=== PATIENT | female | born 1965 | race Caucasian/White ===

== ENCOUNTER 2020-04-08 16:20 | Outpatient (CLI) | payer OTHER, SELFPAY ==
--- NOTE | ~2020-04-08 | MM_ITS ---
EXAMINATION: MM screening garrison BI [facility] [place] HISTORY: Screening mammogram TECHNIQUE: Craniocaudal and mediolateral oblique 3-D tomosynthesis images were obtained and synthetic 2-D images were generated. CAD analysis was submitted and interpreted. COMPARISON: 08/15/2017, 05/01/2015, 04/21/2014 bilateral digital screening mammogram examinations BREAST PARENCHYMAL COMPOSITION: The breasts are heterogeneously dense, which may obscure small masses . FINDINGS: There is a biopsy marker on the right. History of 2 prior benign right breast biopsies. Occ asional bilateral benign microcalcifications. There is no evidence of suspicious mass, calcification, or architectural distortion to suggest malignancy in either breast. There has been no suspicious int erval change. IMPRESSION: 1. No mammographic evidence of malignancy. 2. Recommend routine screening mammography in one year. BI-RADS Category 2: Benign finding(s). Reviewed, dictated and finalized at location A. 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
== END 2020-04-08 16:21 | disposition home or self-care (01) ==
PROVIDERS: PCP Family Medicine; Visit Provider Student in an Organized Health Care Education/Training Program
DX: Z12.31 Encounter for screening mammogram for malignant neoplasm of breast (principal)
CPT/HCPCS: 77063; 77067

== ENCOUNTER 2021-07-17 09:25 | Outpatient (CLI) | payer OTHER, SELFPAY ==
--- NOTE | ~2021-07-17 | MM_ITS ---
EXAMINATION: MM screening garrison BI [facility] [place] HISTORY: Screening mammogram TECHNIQUE: Craniocaudal and mediolateral oblique 3-D tomosynthesis images were obtained and synthetic 2-D images were generated. CAD analysis was submitted and interpreted. COMPARISON: 04/08/2020, 08/15/2017, 05/01/2015 bilateral screening mammogram examinations BREAST PARENCHYMAL COMPOSITION: The breasts are heterogeneously dense, which may obscure small masses . FINDINGS: There is chronic asymmetry/architectural distortion in the posterior upper outer right [address], stable since 08/15/2017, likely due to prior reportedly benign breast biopsy. There is a biopsy marker more anteriorly in the outer mid right breast. There is no evidence of suspicious mass, calcification, or new architectural distortion to suggest ma lignancy in either breast. There has been no suspicious interval change. IMPRESSION: 1. No mammographic evidence of malignancy. 2. Recommend routine screening mammography in one year. BI-RADS Category 2: Benign finding(s). Reviewed, dictated and finalized at location A.
== END 2021-07-17 09:26 | disposition home or self-care (01) ==
LOC: ANHIMG 09:26
PROVIDERS: PCP Family Medicine; Visit Provider Student in an Organized Health Care Education/Training Program
DX: Z12.31 Encounter for screening mammogram for malignant neoplasm of breast (principal)
CPT/HCPCS: 77063; 77067

== ENCOUNTER 2022-08-25 15:51 | Outpatient (CLI) | payer OTHER, SELFPAY ==
--- NOTE | ~2022-08-25 | MM_ITS ---
EXAMINATION: MM screening garrison BI [facility] [place] HISTORY: Screening mammogram TECHNIQUE: Craniocaudal and mediolateral oblique 3-D tomosynthesis images were obtained and synthetic 2-D images were generated. CAD analysis was submitted and interpreted. COMPARISON: 07/17/2021, 04/08/2020, 08/15/2017 BREAST PARENCHYMAL COMPOSITION:The breasts are heterogeneously dense, which may obscure small masses. FINDINGS: There is a 4 mm asymmetry in the inner right breast, seen only on CC view. No suspicious ma ss or architectural distortion are identified in either the left breast. No suspicious macrocalcifica tions in either breast. IMPRESSION: 4 mm asymmetry at the inner right breast. Spot compression and rolled views, and possibly ultrasound , are recommended for further evaluation. BI-RADS Category 0: Incomplete: Needs additional imaging evaluation. Reviewed, dictated and finalized at [facility]. IMPRESSION: 4 mm asymmetry at the inner right breast. Spot compression and rolled views, a nd possibly ultrasound, are recommended for further evaluation. BI-RADS Category 0: Incomplete: Needs additional imaging evaluation.
== END 2022-08-25 15:52 | disposition home or self-care (01) ==
PROVIDERS: PCP Family Medicine; Visit Provider Student in an Organized Health Care Education/Training Program
DX: Z12.31 Encounter for screening mammogram for malignant neoplasm of breast (principal); N64.89 Other specified disorders of breast
CPT/HCPCS: 77063; 77067

== ENCOUNTER 2022-09-28 11:43 | Outpatient (CLI) | payer OTHER, SELFPAY ==
--- NOTE | ~2022-09-28 | MMUS_ITS ---
EXAMINATION: MM diagnostic garrison RT w [place], US breast RT complete HISTORY: 4 mm asymmetry of inner right breast on screening craniocaudal view of 08/25/2022 TECHNIQUE: Additional 3-D tomosynthesis images of the right breast were performed and synthetic 2-D i mages were generated. CAD analysis was submitted and interpreted. High resolution complete right ruthy st ultrasound examination including all 4 quadrants and subareolar area was performed. COMPARISON: 08/25/2022 bilateral screening mammogram FINDINGS: MAMMOGRAPHIC FINDINGS: A 4 mm density suggested in the inner right breast on 08/25/2022 screening mammogram is not confirmed o n these supplemental views. There is mildly nodular fibroglandular stroma which may obscure small masses. Complete right breast u ltrasound examination was performed. ULTRASOUND: Right breast: 12:00 1 cm from nipple: Parallel circumscribed sonolucency measuring 4.6 x 2.3 mm, consistent with si mple cyst 1:00 2 cm from nipple: 2.5 x 3.6 x 3.8 mm cyst No suspicious mass or shadowing of the right breast is detected. IMPRESSION: 1. Benign findings 2. Routine annual mammographic screening is recommended BI-RADS Category 2: Benign finding(s). Reviewed, dictated and finalized at location A. IMPRESSION: 1. Benign findings 2. Routine annual mammographic screening is recommended BI-RADS Category 2: Benign finding(s).
== END 2022-09-28 11:44 | disposition home or self-care (01) ==
LOC: ANHIMG 11:45
PROVIDERS: PCP Family Medicine; Visit Provider Obstetrics & Gynecology
DX: R92.8 Other abnormal and inconclusive findings on diagnostic imaging of breast (principal)
CPT/HCPCS: 76641; 77061; 77065; G0279

== ENCOUNTER → 2023-04-19 10:52 | Outpatient (CLI) | payer OTHER, SELFPAY ==
--- NOTE | ~2023-04-19 | XR_ITS ---
Supine and upright views of the abdomen Clinical history: Abdominal pain Findings: Bowel gas pattern is nonspecific. No evidence for obstruction or free air. No abnormal mass lesion or calcification is seen, aside from probable calcified phleboliths in the pelvis. Osseous st ructures are intact. Impression: No significant abnormality is seen. Reviewed, dictated and finalized at [facility]. 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
== END ==
PROVIDERS: PCP Physician Assistant; Visit Provider Physician Assistant
DX: R10.9 Unspecified abdominal pain (principal)
CPT/HCPCS: 74018

== ENCOUNTER 2023-04-27 18:58 | Emergency (ER) | payer OTHER, SELFPAY ==
--- NOTE | ~2023-04-27 | CT_ITS ---
EXAMINATION: CT abdomen pelvis wo con DATE: 04/27/2023 22:44 INDICATION: Left flank pain. Urinary tract infection. TECHNIQUE: Computed tomography (CT) of the abdomen and pelvis was performed without intravenous contr ast. Automated exposure control and iterative reconstruction technique were employed. The dose-length product was 232.18 mGy-cm. COMPARISON: None. FINDINGS: The visualized portions of the lung bases demonstrate mild atelectasis. No pleural effusion . The heart size is normal. No pericardial effusion. The liver, gallbladder, pancreas, and adrenal gl ands are normal. Calcifications in the spleen are consistent with old granulomatous disease. The kidn eys are normal. There is no urolithiasis. There are no dilated loops of bowel. The appendix is normal . There are no pathologically enlarged lymph nodes. There is no free intraperitoneal fluid. There is mild lumbar spondylosis. IMPRESSION: 1. No urolithiasis. Reviewed, dictated and finalized at location E. 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 No urolithiasis.
[2023-04-27 19:42] VITALS: BP 136/103; PULSE 71; RESP 16; TEMP 36.4; O2SAT 100
[2023-04-27 20:26] LABS: Appearance Urine Clear (Clear); Bacteria Urine None Seen /hpf; Bilirubin Urine Negative (Negative); Blood Urine Trace (Negative); Color Urine Yellow (Yellow); Glucose Urine UA Negative (Negative); Ketones Urine Negative (Negative); Leukocyte Esterase Ur 2+ LEU/UL (Negative); Nitrate Urine Negative (Negative); Non Pathogenic Casts 0-2; Protein Urine Negative (Negative); RBC Urine 0-2 /hpf (0-2); Specific Grav Ur 1.008 (1.001-1.035); Squamous Epithelial Cell Urine Occasional /hpf (Few); Urobilinogen Urine 0.2 mg/dL (<2.0); WBC Urine 21-50 /hpf; pH Urine 6.5 (5.0-9.0)
[2023-04-27 20:28] LABS: Add Urine Microscopic? YES
[2023-04-27 21:45] LABS: Basophils Percent Auto 0.6 % (0.2-1.2); Eosinophils Absolute Auto 0.1 K/mm3 (0-0.3); Hematocrit 37.5 % (37.0-47.0); Hemoglobin 12.5 g/dL (12.0-15.0); Immature Granulocyte Absolute 0.01 K/mm3 (0.00-0.031); Immature Granulocyte Percent A 0.2 % (0-0.5); Lymphocytes Absolute Auto 1.83 K/mm3 (0.9-3.2); Lymphocytes Percent Auto 28.2 % (18.3-44.2); Mean Corpuscular HGB Conc 33.3 g/dl (32-36); Mean Corpuscular Hemoglobin 31.8 pg (26-34); Mean Corpuscular Volume 95.4 fl (80-100); Mean Platelet Volume 9.6 fl (7.4-10.4); Monocytes Absolute Auto 0.9 K/mm3 (0.1-0.6); Monocytes Percent Auto 13.3 % (2.6-8.5); Neutrophils Absolute Auto 3.6 K/mm3 (1.3-6.7); Neutrophils Percent Auto 55.7 % (45.5-73.1); Platelet Count Result 174 k/mm3 (150-375); Red Blood Count 3.93 M/mm3 (4.2-5.4); Red Cell Distribution Width 12.4 % (11.5-14.5); White Blood Count 6.5 K/mm3 (4.5-10.0)
[2023-04-27 21:56] LABS: Alanine Aminotransferase 18 U/L (6-35); Albumin Level 4.3 g/dL (3.5-5.1); Alkaline Phosphatase 74 U/L (38-126); Anion Gap 6 mmol/L (8-16); Aspartate Amino Transferase 26 U/L (14-36); Bilirubin,Total 0.5 mg/dL (0.2-1.3); Blood Urea Nitrogen 15 mg/dL (7-17); Calcium 8.9 mg/dL (8.4-10.2); Carbon Dioxide 27 mmol/L (22-30); Chloride 103 mmol/L (98-107); Estimated CRCL calculation 61 ml/min; Estimated Glomerular Filt Rate > 60; Glucose 95 mg/dL (65-110); Potassium 3.9 mmol/L (3.4-5.0); Sodium 136 mmol/L (137-145)
[2023-04-27] MEDS: SODIUM CHLORIDE 0.9% IV 1,000 ML 999 ML IV CONT (22:57)
--- NOTE | 2023-04-27 23:08 | ED.FEMALEGU ---
HPI - Female Genitourinary General Chief complaint: Urogenital-Female Stated complaint: left flank pain Time Seen by Provider: 04/27/23 22:05 Source: patient and old records reviewed Mode of arrival: ambulatory Limitations: no limitations History of Present Illness HPI Narrative: Patient is a 58-year-old female who presents to ED with report of left flank pain and UTI. Patient reports she has had ongoing left flank pain for the last 3 weeks. She saw her primary care doctor last Monday and was diagnosed with a UTI. Sent for outpatient KUB x-ray which was unremarkable. Patient does not have any history of kidney stones. Denies pain radiating significantly around to abdomen. she is a not had any notable urinary symptoms, denies significant dysuria, frequency, urgency, hematuria. Patient has been on ciprofloxacin for the last 10 days but denies improvement of Flank pain. Has been trying Aleve at home without improvement. Wanting re-evaluation. Denies nausea, vomiting, fevers, diarrhea, constipation. Related Data Home Medications Medication Instructions Recorded Confirmed levothyroxine 50 mcg capsule 50 mcg PO DAILY 09/19/19 09/22/20 tpdlkgssodrr-wludkhvj-eaohuwj-folic 1 tablet PO DAILY 09/19/19 09/22/20 acid 400 mcg-vit K1 20 mcg tablet (One-A-Day Women's 50 Plus) krill oil 500 mg capsule mg PO 04/26/22 Allergies Allergy/AdvReac Type Severity Reaction Status Date / Time Sulfa (Sulfonamide Allergy Unknown unknown Verified 04/27/23 22:19 Antibiotics) Review of Systems Review of Systems: CONSTITUTIONAL: Denies fever, chills, or sweats. CARDIOVASCULAR: Denies chest pain. RESPIRATORY: Denies dyspnea. GASTROINTESTINAL: See HPI. GENITOURINARY: Denies dysuria or hematuria. MUSCULOSKELETAL: See HPI. All systems reviewed & are unremarkable except as noted in HPI and below PMFSH Past Medical History Medical History Adhesive capsulitis Degenerative disc disease, cervical Displaced fracture of shaft of left clavicle Hyperlipidemia Hypertension Hypothyroidism Scleritis Surgical History Surgical History History of bunionectomy right foot 2011 History of endometrial ablation 2008 History of right breast biopsy History of shoulder surgery ORIF left distal clavicle 10/2018 [place] teeth removed Family History Family History Father Diabetes mellitus Family history of hypercholesterolemia Alzheimer disease Sibling Family history of hypercholesterolemia COPD (chronic obstructive pulmonary disease) Mother Family history of colonic diverticulitis Social History Social History Smoking status: Never smoker Second hand tobacco smoke exposure: No Alcohol intake: current Substance use: never Substance use type: does not use Lack of Transportation: No Lack of Food: Never True Current Housing: I Have Housing Concerned About Future Housing: No Difficulty Paying Gas/Electric Bills: No Difficulty Paying for Meds: No Currently Unemployed: No Education: Master's Degree or Higher Difficulty w/ Childcare or Family Care: No Living arrangements: with family Occupation/Education: occupation 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 HEAD: Normocephalic, atraumatic. RESPIRATORY: Airway patent, respirations nonlabored. Clear to auscultation bilaterally, no rales, rhonchi, wheezing. CARDIOVASCULAR: Regular rate and rhythm without murmurs, rubs, or gallop
[2023-04-27] MEDS: KETOROLAC 30 MG/ML VIAL (*BKC) IV PUSH (23:17)
== END 2023-04-28 00:03 | disposition home or self-care (01) ==
PROVIDERS: Emergency Medicine; Emergency Provider Physician Assistant; PCP Physician Assistant
DX: N30.00 Acute cystitis without hematuria (principal); R10.9 Unspecified abdominal pain; I10 Essential (primary) hypertension; E78.5 Hyperlipidemia, unspecified; E03.9 Hypothyroidism, unspecified; M50.30 Other cervical disc degeneration, unspecified cervical region
CPT/HCPCS: 36415; 74176; 80053; 81001; 85025; 87086; 96365; 96375; 99284; J0696; J1885; J7030

== ENCOUNTER 2023-10-02 15:11 | Outpatient (CLI) | payer OTHER, SELFPAY ==
--- NOTE | ~2023-10-02 | MM_ITS ---
EXAMINATION: MM screening garrison BI [facility] [place] HISTORY: Screening TECHNIQUE: Craniocaudal and mediolateral oblique 3-D tomosynthesis images were obtained and synthetic 2-D images were generated. CAD analysis was submitted and interpreted. COMPARISON: Comparison to multiple prior studies sequentially, with oldest reviewed study dated 05/01. BREAST PARENCHYMAL COMPOSITION: Not dense: There are scattered areas of fibroglandular density. FINDINGS: There is no evidence of suspicious mass, calcification, or architectural distortion to sugg est malignancy in either breast. There has been no suspicious interval change. IMPRESSION: 1. No mammographic evidence of malignancy. 2. Recommend routine screening mammography in one year. BI-RADS Category 1: Negative Reviewed, dictated and finalized at location B.
== END 2023-10-02 15:12 | disposition home or self-care (01) ==
LOC: ANHIMG 15:13
PROVIDERS: PCP Family Medicine; Visit Provider Registered Nurse
DX: Z12.31 Encounter for screening mammogram for malignant neoplasm of breast (principal)
CPT/HCPCS: 77063; 77067

== ENCOUNTER 2023-11-16 01:45 | Day surgery (SDC) | payer OTHER, SELFPAY ==
[2023-10-31 14:14] VITALS: BMI 20.4
[2023-11-16 07:42] VITALS: BP 95/79; PULSE 65; RESP 16; TEMP 36.6; O2SAT 98
[2023-11-16] MEDS: LACTATED RINGERS 1,000 ML 150 ML IV CONT (08:04)
--- NOTE | 2023-11-16 08:33 | WPDANESEPPF ---
Anes - Initial Pre Proc Eval Procedure: Operation Date: 11/16/23 09:00 Proposed Procedures p Screening Colonoscopy - Ravindra Castellon DO Date/Time: 11/16/23 08:33 Surgeon: Ravindra Castellon DO Pre Op Diagnosis: neoplasm screening Patient Data Age: 58 Gender: F Height: 1.63 m Weight: 52.8 kg Last Vital Signs Temp 98 F 11/16/23 07:42 Pulse 65 11/16/23 07:42 Resp 16 11/16/23 07:42 BP 95/79 L 11/16/23 07:42 Pulse Ox 98 11/16/23 07:42 O2 Del Method Room Air 11/16/23 07:42 Allergies Allergy/AdvReac Type Severity Reaction Status Date / Time Sulfa (Sulfonamide Allergy Unknown unknown Verified 11/16/23 07:41 Antibiotics) Home Medications Medication Instructions Recorded Confirmed Type wydqidpovvou-vhvqarhx-vpmshnd-folic 1 tablet PO DAILY 09/19/19 11/16/23 History acid 400 mcg-vit K1 20 mcg tablet (One-A-Day Women's 50 Plus) krill oil 500 mg capsule 500 mg PO DAILY 04/26/22 11/16/23 History estradiol 0.05 mg-norethindrone See Rx Instructions .Route 12/21/22 11/16/23 Rx 0.14 mg/24 hr semiwkly transderm .COMPLEX #24 patches patch (CombiPatch) levothyroxine 75 mcg tablet See Rx Instructions .Route 09/13/23 11/16/23 Rx .COMPLEX #90 tabs losartan 50 mg tablet See Rx Instructions .Route 10/25/23 11/16/23 Rx .COMPLEX #90 tabs Patient hx anesthesia problems: none Family hx anesthesia problems: none Results Review: All pre-operative results and documents have been reviewed as part of the pre-operative evaluation. [facility] Past Medical History Medical History Adhesive capsulitis Degenerative disc disease, cervical Displaced fracture of shaft of left clavicle Hyperlipidemia Hypertension Hypothyroidism Scleritis Surgical History Surgical History History of bunionectomy right foot 2011 History of endometrial ablation 2008 History of right breast biopsy History of shoulder surgery ORIF left distal clavicle 10/2018 [place] teeth removed Family History Family History Father Diabetes mellitus Family history of hypercholesterolemia Alzheimer disease Sibling Family history of hypercholesterolemia COPD (chronic obstructive pulmonary disease) Mother Family history of colonic diverticulitis Social History Social History Smoking status: Never smoker Second hand tobacco smoke exposure: No Alcohol intake: current Drinks per week: 2 Substance use: never Substance use type: does not use Lack of Transportation: No Lack of Food: Never True Current Housing: I Have Housing Concerned About Future Housing: No Difficulty Paying Gas/Electric Bills: No Difficulty Paying for Meds: No Currently Unemployed: No Education: Master's Degree or Higher Difficulty w/ Childcare or Family Care: No Living arrangements: with family Occupation/Education: occupation 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 Gender identity (if verbalized by the patient): Female Sexual Orientation (if Verbalized by the Patient): Straight or Heterosexual Spiritual care concerns: No Anes - Eval Final PreProcedure Day of Procedure 11/16/23 08:33 Patient weight: normal Heart: regular rate and rhythm Lungs: clear to auscultation Airway: Mallampati scale class II Neurological: alert and oriented Last oral intake: >/= 8 hours ASA classification: III Emergent: no Anesthetic plan: proceed Anesthesia type and monitoring: general GIVS and standard monitoring Results Review: All pre-operative results and documents have been reviewed as part of the pre-operative evaluation. Informed Consent: The patient's anesthetic plan and its attendant risks and benefits were discussed with the patient/family/POA. Questions were janet
--- NOTE | 2023-11-16 08:40 | PM.IMHP ---
H&P: HPI History of Present Illness Date/Time: 11/16/23 08:40 Chief Complaint: screening for colorectal cancer Narrative: this is a 58-year-old woman who presents for colonoscopy. Last colonoscopy was 10 years ago and was normal. She denies any hematochezia or melena. She denies family history of colon cancer. Review of Systems Review of Systems: All systems reviewed & are unremarkable except as noted in HPI and below Constitutional: Constitutional: Denies chills, Denies fever(s), Denies headache(s) and Denies weight loss Eyes: Eyes: Denies change in vision ENT: Denies dizziness, Denies headache(s), Denies neck mass and Denies throat swelling Cardiovascular: Cardiovascular: Denies chest pain, Denies lightheadedness and Denies dyspnea Respiratory: Respiratory: Denies cough, Denies dyspnea and Denies wheezing Gastrointestinal: Gastrointestinal: Denies abdominal pain, Denies change in bowel habits, Denies nausea and Denies vomiting Genitourinary: Genitourinary: Denies hematuria and Denies dysuria Musculoskeletal: Musculoskeletal: Reports as per HPI Integumentary/Breasts: Skin/Breast: Reports as per HPI Neurologic: Denies dizziness and Denies headache(s) Allergic/Immunologic: Allergic/Immunologic: Denies throat swelling and Denies wheezing PMFSH Past Medical History Medical History Adhesive capsulitis Degenerative disc disease, cervical Displaced fracture of shaft of left clavicle Hyperlipidemia Hypertension Hypothyroidism Scleritis Surgical History Surgical History History of bunionectomy right foot 2011 History of endometrial ablation 2008 History of right breast biopsy History of shoulder surgery ORIF left distal clavicle 10/2018 [place] teeth removed Family History Family History Father Diabetes mellitus Family history of hypercholesterolemia Alzheimer disease Sibling Family history of hypercholesterolemia COPD (chronic obstructive pulmonary disease) Mother Family history of colonic diverticulitis Social History Social History Smoking status: Never smoker Second hand tobacco smoke exposure: No Alcohol intake: current Drinks per week: 2 Substance use: never Substance use type: does not use Lack of Transportation: No Lack of Food: Never True Current Housing: I Have Housing Concerned About Future Housing: No Difficulty Paying Gas/Electric Bills: No Difficulty Paying for Meds: No Currently Unemployed: No Education: Master's Degree or Higher Difficulty w/ Childcare or Family Care: No Living arrangements: with family Occupation/Education: occupation 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[employer] Gender identity (if verbalized by the patient): Female Sexual Orientation (if Verbalized by the Patient): Straight or Heterosexual Spiritual care concerns: No Meds Home Medications and Allergies Home Medications Medication Instructions Recorded Confirmed Type nzbnrhnvdeur-flcilpfk-dvmriva-folic 1 tablet PO DAILY 09/19/19 11/16/23 History acid 400 mcg-vit K1 20 mcg tablet (One-A-Day Women's 50 Plus) krill oil 500 mg capsule 500 mg PO DAILY 04/26/22 11/16/23 History estradiol 0.05 mg-norethindrone See Rx Instructions .Route 12/21/22 11/16/23 Rx 0.14 mg/24 hr semiwkly transderm .COMPLEX #24 patches patch (CombiPatch) levothyroxine 75 mcg tablet See Rx Instructions .Route 09/13/23 11/16/23 Rx .COMPLEX #90 tabs losartan 50 mg tablet See Rx Instructions .Route 10/25/23 11/16/23 Rx .COMPLEX #90 tabs Allergies Allergy/AdvReac Type Severity Reaction Status Date / Time Sulfa (Sulfonamide Allergy Unknown unknown Verified 11/16/23 07:41 Antibiotics) Vital Signs Vital Signs - 24 hr 11/16/23
[2023-11-16 09:10] VITALS: BP 91/58; PULSE 65; RESP 26; O2SAT 97
[2023-11-16 09:20] VITALS: BP 88/54; PULSE 55; RESP 20; O2SAT 98
[2023-11-16 09:30] VITALS: BP 110/76; PULSE 54; RESP 18; O2SAT 100
== END 2023-11-16 09:36 | disposition home or self-care (01) ==
PROVIDERS: PCP Family Medicine; Visit Provider Surgery
PROC: 0DJD8ZZ Inspection of Lower Intestinal Tract, Via Natural or Artificial Opening Endoscopic (ICD-10-PCS; CPT 45378; principal; 2023-11-16 09:00)
DX: Z12.11 Encounter for screening for malignant neoplasm of colon (principal); I10 Essential (primary) hypertension; E78.5 Hyperlipidemia, unspecified; E03.9 Hypothyroidism, unspecified
CPT/HCPCS: 45378; J2704; J7120

== ENCOUNTER 2024-10-29 07:45 | Outpatient (CLI) | payer OTHER, SELFPAY ==
--- NOTE | ~2024-10-29 | MM_ITS ---
EXAMINATION: MM screening [facility] HISTORY: Screening TECHNIQUE: Craniocaudal and mediolateral oblique 3-D tomosynthesis images were obtained and synthetic 2-D images were generated. CAD analysis was submitted and interpreted. COMPARISON: Comparison to multiple prior studies sequentially, with oldest reviewed study dated 08/15. BREAST PARENCHYMAL COMPOSITION: Dense: The breasts are heterogeneously dense, which may obscure small masses FINDINGS: There is no evidence of suspicious mass, calcification, or architectural distortion to sugg est malignancy in either breast. There has been no suspicious interval change. IMPRESSION: 1. No mammographic evidence of malignancy. 2. Recommend routine screening mammography in one year. BI-RADS Category 1: Negative Reviewed, dictated and finalized at location A.
--- NOTE | ~2024-10-29 | DEXA_ITS ---
Bone Density Report Name: LAST ROBERSON Age: 59 Sex: Female Ethnicity: White Date of : 1965 Indication: postmenopausal; screening for osteoporosis; height loss; Referring Provider: DEBORAH TEJADA Study: Bone densitometry was performed. Exam Date: October 29, 2024 Accession number: [id number] Bone Density: Region BMD T-score Z-score Classification AP Spine(L1-L4) 0.979 -0.6 0.9 Normal Femoral Neck (Left) 0.711 -1.2 0.1 Osteopenia Total Hip (Left) 0.875 -0.6 0.5 Normal Femoral Neck (Right) 0.698 -1.4 0.0 Osteopenia Total Hip (Right) 0.846 -0.8 0.2 Normal Total Hip Mean 0.861 -0.7 0.4 Normal World Health Organization criteria for BMD impression classify patients as: Normal (T-score at or above -1.0), Osteopenia (T-score between -1.0 and -2.5), or Osteoporosis (T-score at or below -2.5). 10-year Fracture Risk(1): Major Osteoporotic Fracture 7.0% Hip Fracture 0.6% Reported Risk Factors: [place] (), Neck BMD=0.698, BMI=20.8 (1) FRAX(R) Version 3.08. Fracture probability calculated for an untreated patient. Fracture probability may be lower if the patient has received treatment. Clinical Information Provided by Patient: Has used the following medications: HRT (i.e. estrogen/hormone therapy), Vitamin D, Calcium Patient maximum height was 64 Menopause Age: 48 Drinks caffeinated beverages Onset of menses at age 10 Number of children 2 Impression: The patient has low bone mass, based on the Right Femoral Neck T-score. The patient has an estimated ten-year risk of hip fracture of 0.6% and an estimated ten-year risk of major fracture of 7%, based on the WHO FRAX algorithm. Discussion: BONE DENSITY IS LOW AT ONE OR MORE SKELETAL SITES. This patient's lowest T-score is low at one or more skeletal sites. It meets the World Health Organization's (WHO) criteria for ?low bone mass? (T-score between -1.0 and -2.5). The patient's 10-year risk of fracture as calculated by FRAX is less than the threshold where pharmacological therapy is recommended by the National Osteoporosis Foundation (NOF). However, all treatment decisions require clinical judgment and consideration of individual patient factors, including patient preferences, comorbidities, previous drug use, risk factors not captured in the FRAX model (e.g., frailty, falls, vitamin D deficiency, increased bone turnover, interval significant decline in bone density) and possible under or overestimation of fracture risk by FRAX. The patient should follow a healthful lifestyle (good nutrition with adequate calcium and vitamin D, and appropriate weight-bearing exercise). Follow-Up: Consider repeating this study in 2 to 3 years to reassess this patient's status, or sooner if there is some new clinical indication. Reported by: DEMETRIUS on 10/29/2024 8:41:00 AM. Reviewed, dictated and finalized at location A.
--- OUTSIDE RECORDS SUMMARY | 2024-10-29 07:48 | XMS_ITS | Clinical Summary ---
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 6 Active levothyroxine (SYNTHROID, LEVOTHROID) 75 mcg tablet Take 1 tablet (75 mcg total) by mouth die maker electronic before breakfast Active multivit-minera ls/folic acid (ONE-A-DAY WOMEN VITACRAVES ORAL) Take by mouth. Activ e COMBIPATCH 0.05-0.14 mg/24 hr DAWNA 1 PA EXT TO THE SKIN 2 TIMES Q WK 2 9 Active acetaminophen (TYLENOL) 500 mg tablet Take 1 tablet (500 mg total) by mouth as needed for pain Active oxyCODONE (ROXICODONE) 5 mg immediate release tabletIndicatio ns:Pain Take 1 tablet (5 mg total) by mouth every 4 (four) hours as needed for pain 40 tablet 9 Active Additional Information Patient not taking.Reported on 11/26/2018 losartan (COZAAR) 50 mg tablet Take 1 tablet (50 mg total) by mouth daily 4 Active loteprednol (LOTEMAX) 0.5 % ophthalmic suspensionIndic ations:Episcler itis of right eye 1 gtt QID OD x 1 week, then 1gtt BID OD x 1 week, then stop 5 mL 4 Active Active Problems Problem Noted Date Diagnosed Date Eye pain, right 05/26/2023 History of scleritis 02/14/2022 Assessment & Plan (02/25/2022 9:54 AM CHAIR AND COUCH MAKER): right eye (OD). No signs today ou. Assessment & Plan (02/14/2022 9:59 AM CHAIR AND COUCH MAKER): right eye (OD). No signs today ou. 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 Signs nearly gone. Taper pred forte (PF) bid (OS) over weekend, Then once/day starting Monday, thru Mon next week and stop if symptoms remain gone. Return if worsens or fails to improve. Otherwise, yearly DFE, here or at local [facility]. Assessment & Plan (02/14/2022 10:00 AM CHAIR AND COUCH MAKER): left eye (OS). Start pred forte (PF) q 2hr left eye (OS) x 3 days. Then qid OS until return appt 1 wk. See sooner if worsens or fails to improve. Nuclear sclerotic cataract, bilateral 02/14/2022 Assessment & Plan (02/25/2022 9:54 AM CHAIR AND COUCH MAKER): Not visually significant. Monitor. UV protection recommended Assessment & Plan (02/14/2022 10:13 AM CHAIR AND COUCH MAKER): Not visually significant. Monitor. UV protection recommended Clavicle pain 10/09/2018 Overview (10/09/2018): Added automatically from request for surgery [id number] Closed displaced fracture of lateral end of left clavicle 10/09/2018 Overview (10/09/2018): Added automatically from request for surgery [id number] Episcleritis of right eye 05/29/2018 Assessment & Plan (11/14/2023 7:57 AM CDT): OHx of alternating NGAU, episcleritis OD Today with likely episcleritis flare OD A/C quiet OU Educated and reassured patient of findings Lotemax with QID-BID taper PRN with concerns Assessment & Plan (06/09/2023 9:13 AM CDT): S/s resolved, stop lotemax Assessment & Plan (05/26/2023 12:07 PM CHAIR AND COUCH MAKER): No sx concerning for spondyloarthropathies 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 Prior work up with Rheum unrevealing Undifferentiated connective tissue disease 05/29 Surgical History Surgery Date Site/Laterality Comments ELBOW SURGERY Right BUNIONECTOMY Right ENDOMETRIAL ABLATION FLUORO GUIDED INJECTION SHOULDER LEFT 01/03/2019 Lef t Medical History Medical History Date Comments Hypothyroidism Family History Medical History Relation Name Comments Hyperlipidemia Brother Family histor y of hypercholesterolemia - (Added by TW Conv) Diabetes Father Family history of diabetes mellitus - (Added by TW Conv) Hyperlipidemia Father Family histor y of hypercholesterolemia - (Added by TW Conv) COPD Sister Family history of chronic obstructive pulmonary disease - (Added by TW Conv) Rheum arthritis Son Family histo ry of rheumatoid arthritis - (Added by TW Conv) Relation Name Status Comments Brother Father Sister Son Social History Tobacco Use Types Packs/Day Years Used Date Smoking Tobacco: Never Smokeless Tobacco: Never Alcohol Use Standard Drinks/Week Comments Yes 1 (1 standard drink = 0.6 oz pur e alcohol) Comments No Sex and Gender Information Value Date Recorded Sex Assigned at Not on file Legal Sex Female 9:17 PM CHAIR AND COUCH MAKER Gender Identity Not on file Sexual Orientation Not on file Obstetrics History Last Filed Vital Signs Vital Sign Reading Time Taken Comments Blood Pressure 151/88 01/03/2019 3:14 PM CDT Pulse 60 01/03/2019 3:14 PM CDT Temperature 36.8 C (98.3 F) 11/26/2018 12:57 PM CDT Respiratory Rate 16 01/03/2019 3:14 PM CDT Oxygen Saturation 100% 01/03/2019 3:14 PM CDT Inhaled Oxygen Concentration - - Weight 53.1 kg (117 lb 1.6 oz) 11/26/2018 12:57 PM CDT Height 160 cm (5' 3) 11/26/2018 12:57 PM CDT Body Mass Index 20.74 11/26/2018 12:57 PM CDT Plan of Treatment Health Maintenance Due Date Last Done Comments Breast Cancer Screening-Mammogram 1965 Cervical Cancer Screening 1965 Colon Cancer Screening-Colonoscopy 1965 Depression Screening 1965 Hepatitis C Screening 1965 Hepatitis B Screening 1981 Regular Well Visit/Exam 18-64 1981 Zoster Vaccine (1 of 2) 2013 Covid-19 Vaccine (2023-2 5 season) 2023 02/08/2021, 06/01/2020, 05/03/2020 Influenza Vaccine (#1) 2024 2, 02/03/2021, 12/27/2019 DTaP/Tdap/Td Vaccine (2 - Td or Tdap) 12/26/2029 12/27/2019 Pneumococcal vaccine <65 Aged Out No longer eligible based on patient's age to complete this topic Medical Devices Implanted Type Area Ticket Sorter Device Identifier Shelf Expiration Date Model / Serial / Lot [employer] [id number] 3.5mm 12mm Hexalobe Screw Bone Titanium Nonsterile Small Fragment - [id number] Implanted:Qty: 4 on 10/11/2018 by Chapo Baig MD at [facility] Left: Clavicle [employer] [id number] / / [employer] Co-T2312 2.3mm 12mm Lock Hexagonal Cortical Full Thread Screw Bone - [id number] Implanted:Qty: 3 on 10/11/2018 by Chapo Baig MD at [facility] Left: Clavicle [employer] CO-T2312 / / [employer] Co-T2316 2.3mm 16mm Lock Hexagonal Cortical Full Thread Screw Bone - [id number] Implanted:Qty: 1 on 10/11/2018 by Chapo Baig MD at [facility] Left: Clavicle [employer] CO-T2316 / / [employer] Co-T2314 2.3mm 14mm Lock Hexagonal Cortical Full Thread Screw Bone - [id number] Implanted:Qty: 1 on 10/11/2018 by Chapo Baig MD at [facility] Left: Clavicle [employer] CO-T2314 / / [employer] 70-0117 3.5mm 9 Hole Left Distal Clavicle Plate Bone - [id number] Implanted:Qty: 1 on 10/11/2018 by Chapo Baig MD at [facility] Left: Clavicle [employer] 70-0117 / / Explanted Type Area Ticket Sorter Device Identifier Shelf Expiration Date Model / Serial / Lot [employer] 3.5mm 8mm Nonlock Hexalobe Head Screw Bone Nonsterile - [id number] Explanted:Qty: 1 on 10/11/2018 at [facility] Left: Clavicle [employer] -254 / / Insurance [facility] AETNA SIG [id number] [employer] [facility] [address] [facility] Care Teams Gas System Operator Relationship Specialty Start Date End Date Anders Palomo MD [address] [place] [address] PCP - General Family Medicine 10/19/17 Anders Palomo MD [address] [place] [address] 10/19/17
== END 2024-10-29 07:46 | disposition home or self-care (01) ==
PROVIDERS: PCP Nurse Practitioner Family; Visit Provider Nurse Practitioner Family
DX: Z12.31 Encounter for screening mammogram for malignant neoplasm of breast (principal); Z78.0 Asymptomatic menopausal state
CPT/HCPCS: 77063; 77067; 77080